=== PATIENT | female | born 1980 | race Caucasian/White ===

== ENCOUNTER → 2017-07-18 | Outpatient (CLI) | payer BC ==
[~2017-07-18] MED LIST: IBUP-1223 PO; NORE-24 PO; PARO20TA4 PO; PHEN37.53 PO; TRIA1TAB3 PO
[2017-07-18 10:24] LABS: ALBUMIN 3.4 g/dL (3.4-5.0); ANION GAP 7 mmol/L (5-15); CALCIUM 8.7 mg/dL (8.5-10.1); CHLORIDE 104 mmol/L (98-107)
[2017-07-18 10:28] LABS: ALANINE AMINOTRANSFERASE 19 U/L (12-78); ALKALINE PHOSPHATASE 82 U/L (45-117); BILIRUBIN,TOTAL 0.3 mg/dL (0.2-1.0); CREATININE 0.65 mg/dL (0.55-1.02)
== END | disposition home or self-care (01) ==
LOC: STAR 09:17
PROVIDERS: ATTEND Orthopaedic Surgery
DX: Z01.818 Encounter for other preprocedural examination (principal); M25.511 Pain in right shoulder; M75.41 Impingement syndrome of right shoulder; M19.011 Primary osteoarthritis, right shoulder
CPT/HCPCS: 36415; 80053

== ENCOUNTER 2018-05-14 06:29 | Day surgery (SDC) | payer BC, MEDICAID ==
[~2018-05-14] VITALS: Ht 160 cm; Wt 72.1 kg
[~2018-05-14 06:29] MED LIST changes: +ALBU8.5H8 INH; +TRIA1TAB5 PO
[2018-05-14] MEDS ORDERED: BACITRACIN OINT 500U/GM, 15 GM ONE (07:06)
[2018-05-14] MEDS ORDERED: FLUORESCEIN SODIUM 500 MG/5 ML ONE (07:06)
[2018-05-14] MEDS ORDERED: EPINEPHRINE TOPICAL SOLN 1 MG/ML, 30ML ONE (07:06)
[2018-05-14] MEDS ORDERED: LIDOCAINE 1%-EPI 1:100K, 20ML ONE (07:06)
[2018-05-14] MEDS ORDERED: OXYMETAZOLINE NASAL SPRAY 0.05%, 15ML ONE (07:06)
[2018-05-14] MEDS ORDERED: LACTATED RINGERS 1,000 ML IV SCH (07:07)
[2018-05-14 07:33] VITALS: BP 127/90
[2018-05-14] MEDS ORDERED: MIDAZOLAM 1 MG/ML, 2ML ONE (09:16)
[2018-05-14] MEDS ORDERED: FENTANYL PF 250 MCG/5ML ONE (09:17)
[2018-05-14] MEDS ORDERED: GLYCOPYRROLATE 0.2MG/1ML, 5ML ONE (09:27)
[2018-05-14] MEDS ORDERED: NEOSTIGMINE 1 MG/ML, 10ML ONE (09:27)
[2018-05-14] MEDS ORDERED: DEXAMETHASONE 4 MG/ML, 1ML ONE (09:27)
[2018-05-14] MEDS ORDERED: ONDANSETRON 2MG/ML, 2ML ONE (09:27)
[2018-05-14] MEDS ORDERED: ROCURONIUM 10 MG/ML,10ML ONE (09:27)
[2018-05-14] MEDS ORDERED: CEFAZOLIN 1,000 MG ONE (09:27)
[2018-05-14] MEDS ORDERED: LABETALOL 5MG/ML, 20ML IV PRN (09:30)
[2018-05-14] MEDS ORDERED: OXYcodone 5 MG/5 ML ORAL.SOL UDC PO PRN (09:30)
[2018-05-14] MEDS ORDERED: HYDROmorphone 2 MG/ML, 1ML IVPush PRN (09:30)
[2018-05-14] MEDS ORDERED: MEPERIDINE/PF 25MG/0.5ML IVPush PRN (09:30)
[2018-05-14] MEDS ORDERED: ACETAMINOPHEN 325 MG TABLET PO PRN (09:30)
[2018-05-14] MEDS ORDERED: hydrALAzine 20 MG/ML, 1ML IV PRN (09:30)
[2018-05-14] MEDS ORDERED: DIAZEPAM 5 MG/ML, 2ML IVPush PRN (09:30)
[2018-05-14] MEDS ORDERED: FENTANYL PF 100 MCG/2ML IV PRN (09:30)
[2018-05-14] MEDS ORDERED: ALBUTEROL SULFATE 2.5 MG/3 ML NPPB PRN (09:30)
[2018-05-14] MEDS ORDERED: PROPOFOL 50 ML ONE ×2 (09:37→12:14)
[2018-05-14] MEDS ORDERED: GABAPENTIN 300 MG CAPSULE PO ONE (11:30)
[2018-05-14] MEDS ORDERED: ACETAMINOPHEN 650 MG/20.3 ML UDC ONE (11:38)
[2018-05-14] MEDS ORDERED: OXYcodone 5 MG/5 ML ORAL.SOL UDC ONE (11:38)
== END 2018-05-14 13:30 | disposition home or self-care (01) ==
LOC: OUT 06:29
PROVIDERS: ATTEND Otolaryngology
DX: J01.01 Acute recurrent maxillary sinusitis (principal); J32.0 Chronic maxillary sinusitis; J34.89 Other specified disorders of nose and nasal sinuses; G43.909 Migraine, unspecified, not intractable, without status migrainosus; F41.9 Anxiety disorder, unspecified; F32.9 Major depressive disorder, single episode, unspecified; K21.9 Gastro-esophageal reflux disease without esophagitis; I10 Essential (primary) hypertension; F17.210 Nicotine dependence, cigarettes, uncomplicated; Z72.89 Other problems related to lifestyle
CPT/HCPCS: 31240; 31256; 31257; 61782; 81025; 88304; J0690; J1100; J2250; J2405; J2704; J2710; J3010; J3490; J7120